=== PATIENT | male | born 1945 | race Caucasian/White ===

== ENCOUNTER 2019-10-13 16:07 | Emergency (ER) | payer OTHER ==
[~2019-10-13] VITALS: Ht 180.3 cm; Wt 67.1 kg
[2019-10-13] MEDS ORDERED: VASOTEC10 MG PO (17:17)
[2019-10-13] MEDS ORDERED: KEPPRA750 MG PO (17:18)
[2019-10-13] MEDS ORDERED: ASPIR 8181 MG PO (17:18)
== END 2019-10-13 19:10 | disposition home or self-care (01) ==
LOC: ER 16:07
DX: S61.220A Laceration with foreign body of right index finger without damage to nail, initial encounter (principal); S61.225A Laceration with foreign body of left ring finger without damage to nail, initial encounter; W54.0XXA Bitten by dog, initial encounter; Y93.89 Activity, other specified; Y92.89 Other specified places as the place of occurrence of the external cause; Y99.8 Other external cause status

== ENCOUNTER 2020-09-25 13:00 | Outpatient (CLI) | payer OTHER ==
[~2020-09-25 13:00] MED LIST: ASPIR 8181 MG PO; KEPPRA750 MG PO; VASOTEC10 MG PO
== END 2020-09-25 13:21 | disposition home or self-care (01) ==
LOC: NUCLEAR 13:00
PROVIDERS: ATTEND Orthopaedic Surgery
DX: M81.0 Age-related osteoporosis without current pathological fracture (principal)

== ENCOUNTER 2020-09-25 13:42 | Outpatient (CLI) | payer OTHER | END 2020-09-25 13:48 | disposition home or self-care (01) | LOC: RAD 13:42 | PROVIDERS: ATTEND Orthopaedic Surgery | DX: M25.571 Pain in right ankle and joints of right foot (principal); S82.61XK Displaced fracture of lateral malleolus of right fibula, subsequent encounter for closed fracture with nonunion ==

== ENCOUNTER → 2020-10-04 11:44 | Outpatient (CLI) | payer OTHER | END | disposition home or self-care (01) | LOC: LAB 11:44 | PROVIDERS: ATTEND Orthopaedic Surgery | DX: E21.2 Other hyperparathyroidism (principal); E55.9 Vitamin D deficiency, unspecified; M85.88 Other specified disorders of bone density and structure, other site; E88.89 Other specified metabolic disorders; M81.8 Other osteoporosis without current pathological fracture; E56.1 Deficiency of vitamin K ==